=== PATIENT | female | born 1990 | race Caucasian/White ===

== ENCOUNTER 2017-02-14 12:05 | Emergency (ER) | payer OTHER, SELFPAY ==
[2017-02-14 12:06] VITALS: BMI 16.9
--- NOTE | 2017-02-14 14:14 | C.PDOC ---
History Of Present Illness 26 y/o female with Hx of miscarriages presents to ED with complaints of low abdominal pain. Patient states she had a positive test at home on Sunday. Patient does not have a PMD and denies fever, chills, n/v/d, back pain, vaginal bleeding or discharge. No other complaints at this time. Time Seen by Provider: 02/14/17 13:51 Chief Complaint (Nursing): Abdominal Pain History Per: Patient History/Exam Limitations: no limitations Onset/Duration Of Symptoms: Days Current Symptoms Are (Timing): Still Present Past Medical History Reviewed: Historical Data, Nursing Documentation, Vital Signs Vital Signs: Last Vital Signs Temp 98.9 F 02/14/17 15:59 Pulse 96 H 02/14/17 15:59 Resp 16 02/14/17 15:59 BP 124/71 02/14/17 15:59 Pulse Ox 98 02/14/17 15:59 Surgical History: No Surg Hx Family History: States: No Known Family Hx - Social History Hx Tobacco Use: No Hx Alcohol Use: No Hx Substance Use: No - Immunization History Hx Tetanus Toxoid Vaccination: No Hx Influenza Vaccination: No Hx Pneumococcal Vaccination: No Review Of Systems Constitutional: Negative for: Fever, Chills Cardiovascular: Negative for: Chest Pain Respiratory: Negative for: Shortness of Breath Gastrointestinal: Positive for: Abdominal Pain. Negative for: Nausea, Vomiting , Diarrhea Genitourinary: Negative for: Dysuria, Hematuria, Vaginal Discharge, Vaginal Bleeding Musculoskeletal: Negative for: Back Pain Skin: Negative for: Rash Physical Exam - Physical Exam Appears: Non-toxic, No Acute Distress Skin: Normal Color, Warm, Dry, No Rash Head: Atraumatic, Normacephalic Eye(s): bilateral: Normal Inspection Oral Mucosa: Moist Neck: Normal ROM, Supple Chest: Symmetrical Cardiovascular: Rhythm Regular, No Murmur Respiratory: Normal Breath Sounds, No Rales, No Rhonchi, No Wheezing Gastrointestinal/Abdominal: Tenderness (To suprapubic area), No Guarding, No Rebound Back: No CVA Tenderness, No Paraspinal Tenderness Extremity: Normal ROM, Capillary Refill (<2 seconds) Neurological/Psych: Oriented x3 ED Course And Treatment - Laboratory Results Result Diagrams: 02/14/17 14:16 02/14/17 14:16 Lab Interpretation: Normal Urine POC: Negative O2 Sat by Pulse Oximetry: 100 (RA) Pulse Ox Interpretation: Normal - CT Scan/US No standard instances Other Rad Studies (CT/US): Read By Radiologist, Radiology Report Reviewed CT/US Interpretation: FINDINGS: UTERUS: Measures 7.8 x 4.3 x 5.7 cm. Hyperechoic lesions seen at the mid fundus posteriorly measuring 3.6 x 2.6 x 3.1 cm with both shadowing but also post acoustic enhancement present compatible with a solitary fibroid. A bridges both the submucous and sub serosal spaces. No additional myometrial lesion identified. ENDOMETRIUM: Measures 5.5 mm in diameter. Unremarkable. CERVIX: No cervical abnormality identified. RIGHT OVARY: Measures 3.1 x 2.0 x 2.8 cm. No solid mass. Normal flow. LEFT OVARY: Measures 3.6 x 3.3 x 2.9 cm. No solid mass. Normal flow. There is a 1.9 x 1.3 x 1.7 cm simple cyst seen at the infra anterior portion of the left ovary avascular on color Doppler ultrasound. A simple cyst measures 3.2 x 2.0 x 1.9 cm in the posterior portion of the left ovary avascular on color ultrasound reflecting a chronic slightly larger or recurrent simple cyst. FREE FLUID: No significant free fluid noted. OTHER FINDINGS: None. IMPRESSION: 1. A stable, 3.6 cm posterior fundal myoma is not significant changed in size, bridging the submucous and sub serosal spaces. 2. Recurrent or persistent simple cyst left ovary 3.2 cm greatest dimension. An additional smaller cyst identified measuring 1.9 cm. Consider follow-up transvaginal pelvic ultrasound in 6-8 weeks. Progress Note: US ordered. On re-evaluation abdomen soft non-tender Reassessment Condition: Unchanged Medical Decision Making Medical Decision Making: Plan: * blood work * UA * US abdomen * * * Patient reports (+) test at home. In ED urine Hcg (-) * Beta Hcg blood 30 * * Patient instructed to follow up in 2 days for repeat Hch * * Patient instructed to follow up with [facility] for further evaluation * * Impression: * * Possible miscarrage, possible early Disposition Counseled Patient/Family Regarding: Studies Performed, Diagnosis, Need For Followup - Disposition Referrals: [facility] [Outside] [facility] [Outside] Disposition: HOME/ ROUTINE Disposition Time: 15:15 Condition: STABLE Additional Instructions: Follow up with PMD or clinic for further evaluation Return to ED in 2 days for repeat beta Hcg Instructions: Dysfunctional Uterine Bleeding (ED) Forms: [employer] [facility] (Mohawk) Print Language: UPPER SORBIAN - POA Present On Arrival: None - Clinical Impression Clinical Impression: Abdominal pain, Vaginal bleeding - PA / OFFICER CAPTAIN / Resident Statement MD/DO has reviewed & agrees with the documentation as recorded. - Scribe Statement The provider has reviewed the documentation as recorded by the Jiibadrian Carrion All medical record entries made by the Sloan were at my direction and personally dictated by me. I have reviewed the chart and agree that the record accurately reflects my personal performance of the history, physical exam, medical decision making, and the department course for this patient. I have also personally directed, reviewed, and agree with the discharge instructions and disposition.
[2017-02-14 14:21] LABS: BASO # 0.1 K/uL (0.0-0.2); BASO % 0.7 % (0.0-2.0); EOS # 0.1 K/uL (0.0-0.7); EOS % 0.6 % (0.0-4.0); HEMATOCRIT 39.5 % (34.0-47.0); LYMPH # 1.4 K/uL (1.0-4.3); LYMPH % 17.7 % (20.0-40.0); MEAN CELL VOLUME 87.5 fL (81.0-99.0); MEAN CORPUSCULAR HEMOGLOBIN 30.1 pg (27.0-31.0); MEAN CORPUSCULAR HGB CONC 34.5 g/dL (33.0-37.0); MEAN PLATELET VOLUME 8.7 fL (7.2-11.7); MONO # 0.7 K/uL (0.0-0.8); MONO % 9.2 % (0.0-10.0); RED CELL DISTRIBUTION WIDTH 13.3 % (11.5-14.5); WHITE BLOOD COUNT 7.8 K/uL (4.8-10.8)
[2017-02-14 14:41] LABS: CHLORIDE 103 mmol/L (98-107); POTASSIUM 3.7 mmol/L (3.6-5.2); SODIUM 140 mmol/L (132-148)
[2017-02-14 14:44] LABS: BLOOD UREA NITROGEN 10 mg/dL (7-17); CALCIUM 9.9 mg/dl (8.6-10.4); CARBON DIOXIDE 23 mmol/L (22-30); GFR AFRICAN-AMERICAN > 60; GLUCOSE,RANDOM 79 mg/dL (65-105)
[2017-02-14 15:02] LABS: RBC URINE 3 /hpf (0-3); URINE BACTERIA RARE (<OCC); URINE BILIRUBIN NEGATIVE (NEGATIVE); URINE BLOOD NEGATIVE (NEGATIVE); URINE COLOR Yellow (YELLOW); URINE GLUCOSE (UA) NORMAL (Normal); URINE KETONE NEGATIVE (NEGATIVE); URINE LEUKOCYTE ESTERASE 2+ Leu/uL (Negative); URINE PROTEIN NEGATIVE (NEGATIVE); URINE UROBILINOGEN NORMAL mg/dL (0.2-1.0); WBC URINE 14 /hpf (0-5)
--- NOTE | 2017-02-14 15:04 | US ---
HISTORY: bleeding COMPARISON: Prior trans abdominal and transvaginal pelvic ultrasound examination dated 03/15/2016. TECHNIQUE: Transvaginal and trans abdominal pelvic ultrasound were performed for evaluation of irregular vaginal bleeding. FINDINGS: UTERUS: Measures 7.8 x 4.3 x 5.7 cm. Hyperechoic lesions seen at the mid fundus posteriorly measuring 3.6 x 2.6 x 3.1 cm with both shadowing but also post acoustic enhancement present compatible with a solitary fibroid. A bridges both the submucous and sub serosal spaces. No additional myometrial lesion identified. ENDOMETRIUM: Measures 5.5 mm in diameter. Unremarkable. CERVIX: No cervical abnormality identified. RIGHT OVARY: Measures 3.1 x 2.0 x 2.8 cm. No solid mass. Normal flow. LEFT OVARY: Measures 3.6 x 3.3 x 2.9 cm. No solid mass. Normal flow. There is a 1.9 x 1.3 x 1.7 cm simple cyst seen at the infra anterior portion of the left ovary avascular on color Doppler ultrasound. A simple cyst measures 3.2 x 2.0 x 1.9 cm in the posterior portion of the left ovary avascular on color ultrasound reflecting a chronic slightly larger or recurrent simple cyst. FREE FLUID: No significant free fluid noted. OTHER FINDINGS: None. IMPRESSION: 1. A stable, 3.6 cm posterior fundal myoma is not significant changed in size, bridging the submucous and sub serosal spaces. 2. Recurrent or persistent simple cyst left ovary 3.2 cm greatest dimension. An additional smaller cyst identified measuring 1.9 cm. Consider follow-up transvaginal pelvic ultrasound in 6-8 weeks.
[2017-02-14 16:00] VITALS: BP 124/71; PULSE 96; RESP 16; TEMP 98.9
[2017-02-14 18:45] VITALS: O2SAT 100
== END 2017-02-14 16:00 | disposition home or self-care (01) ==
LOC: C.ER 12:05
DX: R10.30 Lower abdominal pain, unspecified (principal); N93.9 Abnormal uterine and vaginal bleeding, unspecified

== ENCOUNTER 2017-02-16 11:09 | Emergency (ER) | payer OTHER ==
[2017-02-16 11:10] VITALS: BMI 16.9
[2017-02-16 11:16] VITALS: BP 109/72; PULSE 80; RESP 16; TEMP 98.1; O2SAT 100
--- NOTE | 2017-02-16 11:28 | C.PDOC ---
History Of Present Illness 26 yr old female presents to the ER for a repeat BETA. patient was last seen on 02/14. Denies fever, chills, nausea, vomiting, weakness or numbness. Time Seen by Provider: 02/16/17 11:21 Chief Complaint (Nursing): Medical Clearance History Per: Patient History/Exam Limitations: no limitations Onset/Duration Of Symptoms: Days Past Medical History Reviewed: Historical Data, Nursing Documentation, Vital Signs Vital Signs: Last Vital Signs Temp 98.1 F 02/16/17 11:15 Pulse 80 02/16/17 11:15 Resp 16 02/16/17 11:15 BP 109/72 02/16/17 11:15 Pulse Ox 100 02/16/17 11:30 Family History: States: No Known Family Hx - Social History Hx Tobacco Use: No Hx Alcohol Use: No Hx Substance Use: No - Immunization History Hx Tetanus Toxoid Vaccination: No Hx Influenza Vaccination: No Hx Pneumococcal Vaccination: No Review Of Systems Except As Marked, All Systems Reviewed And Found Negative. Constitutional: Negative for: Fever, Chills Gastrointestinal: Negative for: Nausea, Vomiting Neurological: Negative for: Weakness, Numbness Physical Exam - Physical Exam Appears: Non-toxic, No Acute Distress Skin: Warm, Dry, No Rash Head: Atraumatic, Normacephalic Oral Mucosa: Moist Chest: Symmetrical, No Tenderness Cardiovascular: Rhythm Regular, No Murmur Respiratory: Normal Breath Sounds, No Rales, No Rhonchi, No Stridor, No Wheezing Gastrointestinal/Abdominal: Normal Exam, Soft, No Tenderness, No Guarding, No Rebound Neurological/Psych: Oriented x3, Normal Speech Gait: Steady ED Course And Treatment O2 Sat by Pulse Oximetry: 100 (RA) Pulse Ox Interpretation: Normal Medical Decision Making Medical Decision Making: PLAN: * BETA Disposition Counseled Patient/Family Regarding: Studies Performed, Diagnosis, Need For Followup - Disposition Referrals: [facility] [Outside] [facility] [Outside] Disposition: HOME/ ROUTINE Disposition Time: 12:22 Condition: GOOD Instructions: Spontaneous Miscarriage (ED) Forms: [facility] (Swiss) - Clinical Impression Clinical Impression: Spontaneous - Scribe Statement The provider has reviewed the documentation as recorded by the Jiibe Fannie Casanova Provider Attestation: All medical record entries made by the Jiibadrian were at my direction and personally dictated by me. I have reviewed the chart and agree that the record accurately reflects my personal performance of the history, physical exam, medical decision making, and the department course for this patient. I have also personally directed, reviewed, and agree with the discharge instructions and disposition.
== END 2017-02-16 12:41 | disposition home or self-care (01) ==
LOC: C.ER 11:09
DX: O03.9 Complete or unspecified spontaneous abortion without complication (principal)

== ENCOUNTER 2017-06-21 11:32 | Emergency (ER) | payer OTHER ==
[2017-06-21 11:40] VITALS: BMI 17.7
[2017-06-21 12:27] LABS: HCG,QUALITATIVE URINE POSITIVE (NEGATIVE)
[2017-06-21 12:34] LABS: SQUAMOUS EPITHIAL 13 /hpf (0-5); URINE BILIRUBIN NEGATIVE (NEGATIVE); URINE BLOOD NEGATIVE (NEGATIVE); URINE CLARITY Hazy (Clear); URINE COLOR Yellow (YELLOW); URINE GLUCOSE (UA) NORMAL (Normal); URINE LEUKOCYTE ESTERASE NEG Leu/uL (Negative); URINE NITRATE NEGATIVE (NEGATIVE); URINE PROTEIN NEGATIVE (NEGATIVE); URINE UROBILINOGEN NORMAL mg/dL (0.2-1.0)
--- NOTE | 2017-06-21 12:57 | C.PDOC ---
History Of Present Illness Corry Torrez is a 27 year old female, with no past medical history, who presents to the emergency department complaining of low back pain, vaginal bleeding on Jun 11, and spotting onset since yesterday. Patient states she took a test x5 days ago and today, both were positive. Patient reports she has had 3 miscarriages in the past. She has not made an appointment with owner consulting engineer. She denies any fever, chills or dysuria. No further medical complaints. lmp 05/14 PMD: None provided. Time Seen by Provider: 06/21/17 11:51 Chief Complaint (Nursing): Female Genitourinary History Per: Patient History/Exam Limitations: no limitations, language barrier (translated by ehsan ) Onset/Duration Of Symptoms: Days (x1) Current Symptoms Are (Timing): Still Present Quality Of Discomfort: "Pain" Associated Symptoms: Back Pain (low). denies: Fever, Chills, Urinary Symptoms ( dysuria) Abnormal Vaginal Bleeding: Yes : 4 Para: 0 Miscarriage: 3 Past Medical History Reviewed: Historical Data, Nursing Documentation, Vital Signs Vital Signs: Last Vital Signs Temp 98.5 F 06/21/17 14:43 Pulse 87 06/21/17 14:43 Resp 18 06/21/17 14:43 BP 112/66 06/21/17 14:43 Pulse Ox 100 06/21/17 14:59 - Medical History PMH: No Chronic Diseases Surgical History: No Surg Hx Family History: States: Unknown Family Hx - Social History Hx Tobacco Use: No Hx Alcohol Use: No Hx Substance Use: No - Immunization History Hx Tetanus Toxoid Vaccination: No Hx Influenza Vaccination: No Hx Pneumococcal Vaccination: No Review Of Systems Constitutional: Negative for: Fever, Chills Genitourinary: Positive for: Vaginal Bleeding. Negative for: Dysuria Musculoskeletal: Positive for: Back Pain (lower) Physical Exam - Physical Exam Appears: No Acute Distress Skin: Normal Color, Warm, Dry, No Rash Head: Atraumatic, Normacephalic Eye(s): bilateral: Normal Inspection Neck: Normal ROM, Supple Chest: No Tenderness Cardiovascular: Rhythm Regular Respiratory: Normal Breath Sounds, No Accessory Muscle Use Gastrointestinal/Abdominal: Normal Exam, Soft, No Tenderness Back: Normal Inspection, No CVA Tenderness Extremity: Normal ROM, No Deformity, No Swelling Neurological/Psych: Oriented x3 (awake), Normal Speech, Normal Cognition ED Course And Treatment - Laboratory Results Result Diagrams: 06/21/17 13:04 06/21/17 13:04 O2 Sat by Pulse Oximetry: 100 (RA) Pulse Ox Interpretation: Normal Medical Decision Making Medical Decision Making: Initial impression: Vaginal bleeding Initial Plan: --Type and screen --Beta-HCG, Quantitative --Comp Metabolic Panel --CBC w/ differential --Culture urine --Transvaginal [US] --reevaluation 14:17 Pelvis/Transvag US Findings: Uterus measures approximately 7.9 x 3.8 x 5.0 cm. Anteverted. Posterior probable uterine fibroid measures approximately 2.9 x 2.9 x 2.9 cm. Endometrial thickness measures approximately 0.6 cm. No evidence of intrauterine gestational sac. Cervix length measures approximately 2.5 cm. The right ovary measures approximately 4.4 x 2.8 x 3.9 cm and contains 2.8 x 2.2 x 2.2 cm anechoic avascular lesion consistent with cyst. The left ovary measures approximately 6.0 x 2.4 x 4.2 cm and contains 3.1 x 2.0 x 3.1 cm and 1.8 x 1.4 x 1.9 cm anechoic avascular lesions consistent with cysts. Blood flow is demonstrated to both ovaries. Impression: No evidence of intrauterine gestational sac. If indeed the patient is based on serum beta HCG values, the sonographic findings represent either: Very early IUP; embryonic demise; ectopic gestation. Follow-up with serial quantitative serum beta HCG measurements and post OBGYN follow-up as clinically indicated, since ectopic gestation cannot be excluded based only on sonographic findings. Posterior uterine fibroid measuring approximately 2.9 cm. Bilateral ovarian cysts. Suggest 6 week ultrasound follow-up to assess for resolution. 243 pm discussed with patient at length how we are unable to tell at this time if pty early , complete ab or ectopic, need repeat bhcg test in 2-3 days. pt advised to return to ed in 2-3 days for repeat bhcg, f/u enologist alissa. , Disposition Counseled Patient/Family Regarding: Studies Performed, Diagnosis, Need For Followup, Rx Given - Disposition Referrals: [facility] at [facility] [Outside] Disposition: HOME/ ROUTINE Disposition Time: 14:46 Condition: STABLE Additional Instructions: Por favor regrese a ER en 2-3 soares para repetir la prueba de bhcg. No est celestino si tiene odos, embarazo, aborto omitido y embarazo ectpico. Regrese a la robby de emergencias por cualquier dolor abdominal peor, hemorragia vaginal abundante, aturdimiento o cualquier otro sntoma preocupante. Instructions: Threatened Miscarriage (ED) Forms: Gen Discharge Inst Nicaraguan, [facility] (Nicaraguan) - Clinical Impression Clinical Impression: Vaginal bleeding, Threatened - Scribe Statement Zach Sanchez All medical record entries made by the Scribe were at my direction and personally dictated by me. I have reviewed the chart and agree that the record accurately reflects my personal performance of the history, physical exam, medical decision making, and the department course for this patient. I have also personally directed, reviewed, and agree with the discharge instructions and disposition.
[2017-06-21 13:08] LABS: BASO # 0.1 K/uL (0.0-0.2); BASO % 0.7 % (0.0-2.0); EOS % 0.5 % (0.0-4.0); HEMOGLOBIN 12.5 g/dL (11.0-16.0); LYMPH # 1.4 K/uL (1.0-4.3); LYMPH % 17.2 % (20.0-40.0); MEAN CELL VOLUME 87.8 fL (81.0-99.0); MEAN CORPUSCULAR HEMOGLOBIN 30.1 pg (27.0-31.0); MEAN CORPUSCULAR HGB CONC 34.3 g/dL (33.0-37.0); MEAN PLATELET VOLUME 8.8 fL (7.2-11.7); MONO # 0.5 K/uL (0.0-0.8); MONO % 6.6 % (0.0-10.0); NEUT # 6.1 K/uL (1.8-7.0); NRBC % 0.1 % (0.0-2.0); RBC 4.17 Mil/uL (3.80-5.20); RED CELL DISTRIBUTION WIDTH 13.5 % (11.5-14.5); WHITE BLOOD COUNT 8.1 K/uL (4.8-10.8)
[2017-06-21 13:26] LABS: ALB/GLOB RATIO 1.3 (1.0-2.1); ALBUMIN 4.2 g/dL (3.5-5.0); ALT/SGPT 18 U/L (9-52); AST/SGOT 19 U/L (14-36); BLOOD UREA NITROGEN 12 mg/dL (7-17); CALCIUM 9.2 mg/dl (8.6-10.4); GFR AFRICAN-AMERICAN > 60; GFR NON-AFRICAN AMERICAN > 60
--- NOTE | 2017-06-21 14:19 | US ---
Indication: , vaginal bleeding Comparison: None available Technique: Real-time transabdominal pelvic ultrasound was performed. In addition a transvaginal pelvic ultrasound was necessary to better depict pelvic anatomy. Findings: Uterus measures approximately 7.9 x 3.8 x 5.0 cm. Anteverted. Posterior probable uterine fibroid measures approximately 2.9 x 2.9 x 2.9 cm. Endometrial thickness measures approximately 0.6 cm. No evidence of intrauterine gestational sac. Cervix length measures approximately 2.5 cm. The right ovary measures approximately 4.4 x 2.8 x 3.9 cm and contains 2.8 x 2.2 x 2.2 cm anechoic avascular lesion consistent with cyst. The left ovary measures approximately 6.0 x 2.4 x 4.2 cm and contains 3.1 x 2.0 x 3.1 cm and 1.8 x 1.4 x 1.9 cm anechoic avascular lesions consistent with cysts. Blood flow is demonstrated to both ovaries. Impression: No evidence of intrauterine gestational sac. If indeed the patient is based on serum beta HCG values, the sonographic findings represent either: Very early IUP; embryonic demise; ectopic gestation. Follow-up with serial quantitative serum beta HCG measurements and post OBGYN follow-up as clinically indicated, since ectopic gestation cannot be excluded based only on sonographic findings. Posterior uterine fibroid measuring approximately 2.9 cm. Bilateral ovarian cysts. Suggest 6 week ultrasound follow-up to assess for resolution.
[2017-06-21 14:43] VITALS: BP 112/66; PULSE 87; RESP 18; TEMP 98.5
[2017-06-21 14:46] VITALS: O2SAT 100
== END 2017-06-21 15:21 | disposition home or self-care (01) ==
LOC: C.ER 11:32
DX: O20.0 Threatened abortion (principal); Z3A.00 Weeks of gestation of pregnancy not specified

== ENCOUNTER 2017-06-24 11:28 | Emergency (ER) | payer SELFPAY ==
[2017-06-24 11:29] VITALS: BMI 17.7
[2017-06-24 11:40] VITALS: TEMP 98.2
--- NOTE | 2017-06-24 12:11 | C.PDOC ---
History Of Present Illness 27 year old female with no significant PMHx presents to the ED for evaluation of repeat Beta Quant. Patient was last seen on 06/21/2017 for vaginal spotting with a Beta Quant of 371. Patient is A3 and LMP was 05/14/2017. Patient denies abdominal pain, nausea, vomiting, vaginal bleeding. dysuria, or any complaints at this time. Time Seen by Provider: 06/24/17 11:45 Chief Complaint (Nursing): Abdominal Pain History Per: Patient History/Exam Limitations: no limitations Onset/Duration Of Symptoms: Other (asymptomatic) Current Symptoms Are (Timing): Gone Pain Scale Rating Of: 0 Radiation Of Pain To:: None Associated Symptoms: denies: Fever, Nausea, Vomiting, Diarrhea Recent travel outside of the [place]: No Additional History Per: Prior Records Abnormal Vaginal Bleeding: No Last Menstral Period: 05/14/2017 : 4 Para: 0 Miscarriage: 3 Past Medical History Reviewed: Historical Data, Nursing Documentation, Vital Signs Vital Signs: Last Vital Signs Temp 98.2 F 06/24/17 11:35 Pulse 79 06/24/17 13:11 Resp 16 06/24/17 13:11 BP 118/69 06/24/17 13:11 Pulse Ox 98 06/24/17 13:11 Family History: States: Unknown Family Hx - Social History Hx Tobacco Use: No Hx Alcohol Use: No Hx Substance Use: No - Immunization History Hx Tetanus Toxoid Vaccination: No Hx Influenza Vaccination: No Hx Pneumococcal Vaccination: No Review Of Systems Constitutional: Negative for: Fever, Chills Cardiovascular: Negative for: Chest Pain, Palpitations Respiratory: Negative for: Cough, Shortness of Breath Gastrointestinal: Negative for: Nausea, Vomiting, Abdominal Pain, Diarrhea Genitourinary: Negative for: Vaginal Bleeding Physical Exam - Physical Exam Appears: Non-toxic, No Acute Distress Skin: Warm, Dry, No Rash Eye(s): bilateral: Normal Inspection, PERRL, EOMI Cardiovascular: Rhythm Regular, No Murmur Respiratory: No Rales, No Rhonchi, No Wheezing, Other (Clear to auscultation bilaterally ) Gastrointestinal/Abdominal: Soft, No Tenderness, No Distention, No Guarding, No Rebound Neurological/Psych: Oriented x3 ED Course And Treatment O2 Sat by Pulse Oximetry: 99 (RA) Pulse Ox Interpretation: Normal - Other Rad trans vag us 06/21 X-Ray: Read By Radiologist Interpretation: No evidence of intrauterine gestational sac. If indeed the patient is based on serum beta HCG values, the sonographic findings represent either: Very early IUP; embryonic demise; ectopic gestation. Follow- up with serial quantitative serum beta HCG measurements and post OBGYN follow- up as clinically indicated, since ectopic gestation cannot be excluded based only on sonographic findings. Posterior uterine fibroid measuring approximately 2.9 cm. Bilateral ovarian cysts. Suggest 6 week ultrasound follow-up to assess for resolution. Progress Note: Beta Quant was ordered. Medical Decision Making Medical Decision Making: Patient's Beta Quant today was 312. pt with decreasing beta hcg, was 371 on 06/21, now 312, unlikely to be a viable . pt advised to f/u with atmospheric physicist within the week for repeat bhcg, needs to follow to zero, pt understands plan. Disposition - Disposition Referrals: [facility] [Outside] Disposition: HOME/ ROUTINE Disposition Time: 13:01 Condition: GOOD Additional Instructions: Por favor, georgie un seguimiento con el gineclogo de wilson eleccin o en la clnica de [facility] para repetir el anlisis de karina del nivel de la hormona del embarazo, debe seguirse hasta que llegue a cero. Regrese a la robby de emergencias por sangrado vaginal abundante, dolor abdominal o cualquier otra preocupacin. Please follow up with fryer operator of your choice or in [facility] for repeat blood work of hormone level, needs to be followed until it reaches zero. Return to ER for any heavy vaginal bleeding, abdominal pain or any other concerns. Instructions: Threatened Miscarriage (ED) Forms: Gen Discharge Inst Telugu, [email or web address] [facility] (Telugu) Print Language: SIERRA LEONEAN - Clinical Impression Clinical Impression: Threatened - PA / COLLISION MECHANIC / Resident Statement MD/DO has reviewed & agrees with the documentation as recorded. - Scribe Statement The provider has reviewed the documentation as recorded by the Scribe Lindsay Flowers All medical record entries made by the Scribe were at my direction and personally dictated by me. I have reviewed the chart and agree that the record accurately reflects my personal performance of the history, physical exam, medical decision making, and the department course for this patient. I have also personally directed, reviewed, and agree with the discharge instructions and disposition.
[2017-06-24 13:12] VITALS: BP 118/69; PULSE 79; RESP 16
[2017-06-25 16:52] VITALS: O2SAT 99
== END 2017-06-24 13:11 | disposition home or self-care (01) ==
LOC: C.ER 11:28
DX: O20.0 Threatened abortion (principal); Z3A.00 Weeks of gestation of pregnancy not specified